=== PATIENT | male | born 1955 | race Caucasian/White ===

== ENCOUNTER 2023-06-25 06:18 | Day surgery (SDC) | payer MEDICARE, BC, SELFPAY ==
[2023-06-25] VITALS (13 sets, daily range): BP systolic 99–128; BP diastolic 70–88; PULSE 64–79; RESP 12–16; TEMP 36.1–37; O2SAT 94–98; BMI 25.1
[2023-06-25] MEDS: LACTATED RINGERS 1000 ML 1,000 ML 100 ML IV ×2 (06:30→08:40)
[2023-06-25] MEDS: SODIUM CHLORIDE 0.9 % (FLUSH) 10 ML SYRINGE IVF (07:00)
[2023-06-25] MEDS: CEFAZOLIN 2 GM INJ IVP (07:41)
[2023-06-25] MEDS: BUPIVACAINE 0.25% 30 ML INJECTION (08:47)
--- NOTE | 2023-06-25 08:56 | PM.GSPRC ---
Operative Note Date of procedure: 06/25/23 Pre-op diagnosis: Right inguinal hernia Post-op diagnosis: Same Type of Procedure: Laparoscopic repair of a right inguinal hernia Indications: The patient is a 67-year-old male who has noted a bulge in his right groin. He was found to have an inguinal hernia. After discussion of options, he elected to have this repaired. Procedure Description: After discussing the risks and benefits of the procedure, the patient signed informed consent.? The operative site was marked and the patient was brought to the operating room and placed on the operating table in supine position.? Care was taken to pad the patient's pressure points.?? The patient was then intubated.?? The operative site was then prepped and draped in the usual sterile fashion.? A time-out was then performed. A curvilinear incision was made below the umbilicus. Dissection was carried down to subcutaneous tissue until the anterior rectus fascia was encountered. This was incised off the midline on the right. However, once the fascia was incised it appeared to be too medial, with evidence of preperitoneal fat and peritoneum noted. 0 Nurolon suture was then used to close this defect in a vest over pants fashion, and the fascia was incised more lateral on the right to this. The rectus muscle fibers were then retracted exposing the posterior fascia. A port with a dissecting balloon was then introduced into the pre-preperitoneal space. This was inflated under direct vision. The balloon was deflated, removed, and a 10 mm working port was placed. The space was insufflated and a 10 mm 30-degree scope was then advanced into the space. Two 5 mm ports were placed in the midline under direct vision. Dissection began on the right side. Lars's ligament and the pubic bone were exposed medially. Following this, dissection was carried out laterally. An indirect defect was noted. The sac was dissected free from the cord structures using a combination of sharp and blunt dissection. Once the sac was completely reduced, a piece of Bard 3DMax mesh for the appropriate side was placed into the abdomen. This was positioned with the marker pointed medially. A Tacker was used to attach the mesh medially at Lars's ligament and 1 tack laterally with care to avoid the epigastric vessels and stay above the inguinal ligament. A small peritoneal tear was closed with 2 5 mm clips after vacuuming pneumoperitoneum. Once this was completed the sac was placed on top of the mesh and the preperitoneal space desufflated under direct vision to ensure the mesh laid flat. 15 mL of 0.5% Marcaine were instilled into the preperitoneal space through a port. The ports were removed. The fascia from the infraumbilical port was closed with 0 Vicryl. The skin incisions were closed with absorbable subcuticular suture. Sterile dressings were then applied. The scrotum was examined to ensure that both testicles were down. Instrument sponge and needle counts were correct at the end of the case. ? The patient was then woken and transported to the recovery area in stable condition. ? The patient tolerated the procedure well. Findings: Indirect right inguinal hernia Anesthesia: RYANA Surgeon: Hilary Taylor MD Estimated blood loss (mL): 5 Condition: stable Disposition: PACU
[2023-06-25] MEDS: fentaNYL 100 MCG/2 ML inj 50 MCG IVP ×2 (09:05→09:10)
--- NOTE | 2023-06-25 09:08 | W.ANESCHARGE ---
Anesthesia Charges Start Date/Time Anesthesia Start Date: 06/25/23 Anesthesia Start Time: 07:31 Stop Date/Time Anesthesia Stop Date: 06/25/23 Anesthesia Stop Time: 09:04
--- NOTE | 2023-06-25 12:14 | SUR.PHASEII ---
Patient attempted to urinate post surgery and he was unable to void. He has a history of enlarged prostate and this is not a new symptom for him. He walked the halls for minutes and tried to urinate again with no success. Chef German performed a bladder scan which resulted in 250 ML. Placed call to Dr. Taylor with report. She advised that it is up to the patient at this point if he wants to stay until he urinates or he can go home to monitor. Patient decided to go home to continue to monitor. He was advised to return to the ED if he has not urinated in 8 hours. Patient stated that he does have self-catheters at home that he can use as needed. All questions answered and patient agrees with plan.
== END 2023-06-25 12:01 | disposition home or self-care (01) ==
PROVIDERS: PCP Student in an Organized Health Care Education/Training Program; Visit Provider Surgery
PROC: (CPT 49650; principal; 2023-06-25 07:30)
DX: K40.90 Unilateral inguinal hernia, without obstruction or gangrene, not specified as recurrent (principal)
CPT/HCPCS: 49650; 00840; 00860; C1781; J0665; J0690; J1100; J1885; J2250; J2371; J2405; J2704; J2710; J3010; J7120